=== PATIENT | female | born 1990 | race Caucasian/White ===

== ENCOUNTER 2024-02-14 07:54 | Outpatient (CLI) | payer MEDICARE, MEDICAID ==
[2024-02-14] VITALS (8 sets, daily range): BP systolic 93–113; BP diastolic 52–80; PULSE 71–94; TEMP 97.9
[~2024-02-14] VITALS: Ht 167.6 cm; Wt 128.8 kg
[2024-02-14] MEDS ORDERED: BACTROBAN15 GM TOP (08:56)
[2024-02-14] MEDS ORDERED: PRISTIQ100 MG PO (08:57)
[2024-02-14] MEDS ORDERED: FLONASE NASAL S16 GM NS (08:58)
[2024-02-14] MEDS ORDERED: LAMICTAL XR200 MG PO (08:58)
[2024-02-14] MEDS ORDERED: ATIVAN 1MG T1 MG/TAB PO (08:59)
[2024-02-14] MEDS ORDERED: XYZAL5 MG PO (08:59)
[2024-02-14] MEDS ORDERED: MAG-OX 400400 MG/TAB PO (09:00)
[2024-02-14] MEDS ORDERED: [UNRECOGNIZED DRUG - OTHER] PO (09:00)
[2024-02-14] MEDS ORDERED: BACTROBAN 22GM22 GM TP (09:01)
[2024-02-14] MEDS ORDERED: ANTIVERT 25MG25 MG PO (09:01)
[2024-02-14] MEDS ORDERED: MELATONIN5 M1 SL (09:01)
[2024-02-14] MEDS ORDERED: PROTONIX 40MG T40 MG PO (09:02)
[2024-02-14] MEDS ORDERED: PATADAY5 ML OP (09:02)
[2024-02-14] MEDS ORDERED: MIRALAX PA17 GM/Dose PO (09:03)
[2024-02-14] MEDS ORDERED: MINIPRESS2 MG PO (09:03)
[2024-02-14] MEDS ORDERED: REFRESH LIQUIGE15 M1 OP (09:04)
[2024-02-14] MEDS ORDERED: TOPAMAX 100MG100 M1 PO (09:04)
[2024-02-14] MEDS ORDERED: B COMPLEX #11 TA1 PO (09:04)
--- NOTE | 2024-02-14 10:13 | NUR ---
DR. FERNANDEZ NOTIFIED FOR BRADYCARDIA AND DECREASED BLOOD PRESSURE, SEE MERGE DOCUMENTATION. PT REPORTS DIZZINESS, NAUSEA, AND NOTED TO BE NEAR-SYNCOPE AT TIME OF SYMPTOMS. TEST ABORTED PER DR. FERNANDEZ. PATIENT VITALS BACK TO BASELINE AT TRANSFER, REPORTS IMPROVEMENT IN DIZZINESS/NAUSEA ON TRANSFER. PT TAKEN VIA WHEELCHAIR TO [facility], FAMILY MEMBER UPDATED AT BEDSIDE. VITAL SIGNS TAKEN ON ARRIVAL, VSS. TRANSFER OF CARE REPORT TO GETACHEW BUTLER. BED IN LOWEST POSITION, CALL LIGHT WITHIN REACH, X2 BEDRAILS IN PLACE.
[2024-02-14] MEDS ORDERED: TOPROL XL 25MG25 MG PO (10:46)
--- NOTE | 2024-02-14 10:50 | NUR ---
Pt has been resting comfortably in bed awaiting discharge instructions and orders. She was given granola bar and soda, tolerated both well. Pt assisted to sit up on edge of bed at 1040 to initiate DC process. She sits for 2 mins, states she feels fine. IV DC'd, site wrapped with coban. Pt then attempts to start to get dressed and calls nurse back into room a few mins later. She is laying back in bed, c/o feeling very hot and nauseated. Vitals obtained. Cool cloth applied to forehead, and HOB is lowered. Madelyn RN with cardiology notified of pt's complaints. Pt will rest in bed, call light in reach. Will continue to monitor.
--- NOTE | 2024-02-14 11:30 | NUR ---
Pt assisted up to restroom by wheelchair. She has been resting in bed, states she is feeling much better. No further nausea. She has been sipping on water.
--- NOTE | 2024-02-14 11:53 | NUR ---
Pt has been sitting up in wheelchair for 20 mins after being assisted to restroom. She states she is feeling fine. No further nausea, becoming heated or other complaints. She ate pudding cup. She is assisted out by wheelchair. Per pt and Chloe's request, they are assisted to OB dept to visit a family member. Pt is free of complaints. She is asked to notify staff or have them call this nurse to assist pt out by wheelchair if needed once they are ready to depart. Pt and Chloe express understanding.
== END 2024-02-14 11:53 | disposition home or self-care (01) ==
LOC: COL.CAR 07:54
DX: R55 Syncope and collapse (principal); R42 Dizziness and giddiness